=== PATIENT | male | born 1965 | race Caucasian/White ===

== ENCOUNTER 2017-02-18 09:05 | Emergency (ER) | payer MEDICAID ==
[~2017-02-18] VITALS: Ht 180.3 cm; Wt 100.0 kg
[2017-02-18 09:08] VITALS: Ht 180.3 cm; Wt 100.0 kg
[2017-02-18] MEDS ORDERED: METHYLPREDNISOLONE 125 MG INJ IV STA (09:22)
[2017-02-18] MEDS ORDERED: SOD CHLORIDE 0.9% 1,000 ML IV STA (09:22)
[2017-02-18 09:57] LABS: BASOPHIL # 0.1 10^3/ul (0.0-0.1); BASOPHILS % 0.9 % (0.0-2.0); EOSINOPHILS # 0.1 10^3/ul (0.0-0.5); EOSINOPHILS % 1.1 % (0.0-7.0); HEMOGLOBIN 16.5 g/dl (14.0-18.0); LYMPHOCYTES # 1.6 10^3/ul (0.8-2.9); LYMPHOCYTES % 17.8 % (15.0-51.0); MEAN CORPUSCULAR HGB CONC 35.9 g/dl (32.0-37.0); MEAN PLATELET VOLUME 11.6 fl (7.4-10.4); MONOCYTES % 11.8 % (0.0-11.0); NEUTROPHILS % 67.8 % (39.0-77.0); PLATELET COUNT 111 10^3/UL (140-415); POSITIVE DIFF @See below; RED CELL DISTRIBUTION WIDTH 12.6 % (11.5-14.5); WHITE BLOOD COUNT 8.8 10^3/ul (4.8-10.8)
--- NOTE | 2017-02-18 10:01 | RADRPT ---
PROCEDURE: XR Chest. CLINICAL INDICATION: Shortness of breath TECHNIQUE: A single AP view of the chest was obtained. COMPARISON: None. FINDINGS: No focal airspace opacification, pleural effusion or pneumothorax is seen. The cardiomediastinal si lhouette is within normal limits for size. The osseous structures are unremarkable. IMPRESSION: No radiographic evidence of acute cardiopulmonary disease. RPTAT: HH .Diana De La O MD, MD Date Time Electronically viewed and signed by .Diana De La O MD, MD on 02/18/2017 10:00 .G/
[2017-02-18 10:13] LABS: ANION GAP 21 (8-16); BLOOD UREA NITROGEN 5 mg/dl (7-20); CARBON DIOXIDE 23 mmol/L (21-31); CHLORIDE 96 mmol/L (97-110); CREATININE 0.85 mg/dl (0.61-1.24); GLUCOSE 130 mg/dl (70-220); POTASSIUM 3.7 mmol/L (3.5-5.1); SODIUM 136 mmol/L (135-144)
[2017-02-18 10:19] LABS: INR 1.16; PROTIME 14.8 Sec (12.2-14.2); PT RATIO 1.2
[2017-02-18 10:20] LABS: PARTIAL THROMBOPLASTIN TIME 28.9 Sec (25.0-35.0)
[2017-02-18 10:30] LABS: TROPONIN-I < 0.012 ng/ml (0.00-0.12)
--- NOTE | 2017-02-18 11:05 | ERD ---
ER Documentation Chief Complaint Date/Time DATE: 02/18/17 TIME: 11:02 Chief Complaint pt bib self with c/o "heart is pounding" with cough HPI This a 51-year-old male who states he has had a cough for 3-4 days with palpitations off and on. Does not have any substernal chest pain whatsoever. He says he thinks he has had a fever at night but has not documented his temperature. He is having cold chills. His cough is dry but does have some occasional productive yellow sputum. No abdominal pain nausea vomiting diarrhea. No shortness of breath ROS All systems reviewed and are negative except as per history of present illness. Medications Home Meds Active Scripts Azithromycin* (Zithromax*) 250 Mg Tablet, 250 MG PO .ZPACK DIRECTED, #6 TAB TAKE 500 MG (2 TABS) THE FIRST DAY THEN 250 MG (1 TAB) DAYS 2-5 Prov:ROSIE POWELL DO 02/18/17 Albuterol Sulfate* (Proair HFA*) 8.5 Gm Hfa.aer.ad, 2 PUFF INH Q4, #1 INHALER Prov:ROSIE POWELL DO 02/18/17 Prednisone* (Prednisone*) 20 Mg Tab, 60 MG PO DAILY for 5 Days, TAB Prov:ROSIE POWELL DO 02/18/17 Reported Medications Levothyroxine Sodium* (Levothyroxine Sodium*) 88 Mcg Tablet, 88 MCG PO BEFORE BREAKFAST, #30 TAB 02/18/17 Lisinopril* (Lisinopril*) 40 Mg Tablet, 40 MG PO DAILY, #30 TAB 02/18/17 Allergies Allergies: Coded Allergies: No Known Allergy (Unverified , 02/18/17) PMhx/Soc Medical and Surgical Hx: pt denies Surgical Hx History of Surgery: No Anesthesia Reaction: No Hx Neurological Disorder: No Hx Respiratory Disorders: No Hx Cardiac Disorders: Yes (HYPERTENSION) Hx Psychiatric Problems: No Hx Miscellaneous Medical Probl: Yes (THYROID PROBLEMS) Hx Alcohol Use: Yes (DRINK ALCOHOL EVERYDAY BUT QUITTED LAST JULY 2016) Hx Substance Use: No Hx Tobacco Use: No Smoking Status: Never smoker FmHx Family History: No coronary disease Physical Exam Vitals Vital Signs Date Time Temp Pulse Resp B/P Pulse Ox O2 Delivery O2 Flow Rate FiO2 02/18/17 09:25 Nasal Cannula 3 02/18/17 09:08 98.3 122 20 143/92 98 Physical Exam Const: Well-developed, well-nourished Head: Atraumatic, normocephalic Eyes: Normal Conjunctiva, PERRLA, EOMI, normal sclera, no nystagmus ENT: Normal External Ears, Nose and Mouth, moist mucus membranes. Neck: Full range of motion. No meningismus, no lymphadenopathy. Resp: Diffuse bilateral rhonchi and wheezing scattered throughout both lung hill Cardio: Regular rate and rhythm, no murmurs, S1 S2 present Abd: Soft, non tender x 4, non distended. Normal bowel sounds, no guarding or rebound, no pulsitile abdominal masses or bruits Skin: No petechiae or rashes, no ecchymosis , no maculopapular rash Back: No midline or flank tenderness Ext: No cyanosis, or edema, FROM x 4, normal inspection, neurovascularly intact x 4 Neur: Awake and alert, STR 5/5 x 4, sensation intact x 4, no focal findings, cerebellum intact Psych: Normal Mood and Affect Result Diagram: 02/18/17 0940 02/18/17 0940 Results 24 hrs Laboratory Tests Test 02/18/17 09:40 White Blood Count 8.810^3/ul Red Blood Count 5.0010^6/ul Hemoglobin 16.5g/dl Hematocrit 46.0% Mean Corpuscular Volume 92.0fl Mean Corpuscular Hemoglobin 33.0pg Mean Corpuscular Hemoglobin Concent 35.9g/dl Red Cell Distribution Width 12.6% Platelet Count 88452^3/UL Mean Platelet Volume 11.6fl Neutrophils % 67.8% Lymphocytes % 17.8% Monocytes % 11.8% Eosinophils % 1.1% Basophils % 0.9% Nucleated Red Blood Cells % 0.0/100WBC Neutrophils # (Manual) 6.010^3/ul Lymphocytes # 1.610^3/ul Monocytes # 1.010^3/ul Eosinophils # 0.110^3/ul Basophils # 0.110^3/ul Nucleated Red Blood Cells # 0.010^3/ul Prothrombin Time 14.8Sec Prothrombin Time Ratio 1.2 INR International Normalized Ratio 1.16 Activated Partial Thromboplast Time 28.9Sec Sodium Level 136mmol/L Potassium Level 3.7mmol/L Chloride Level 96mmol/L Carbon Dioxide Level 23mmol/L Anion Gap 21 Blood Urea Nitrogen 5mg/dl Creatinine 0.85mg/dl Glucose Level 130mg/dl Calcium Level 9.0mg/dl Troponin I < 0.012ng/ml Current Medications Medications (Trade) Dose Ordered Sig/Blanca Route PRN Reason Start Time Stop Time Status Last Admin Dose Admin Methylprednisolone Sodium Succinate 125 mg 125 mg ONCE STAT IV 02/18/17 09:22 02/18/17 09:28 DC 02/18/17 09:53 Sodium Chloride (NS) 1,000 ml @ 1,000 mls/hr Q1H STAT IV 02/18/17 09:22 02/18/17 10:21 DC 02/18/17 09:53 IV Flush 10 ml 10 ml STK-MED ONCE .ROUTE 02/18/17 11:11 02/18/17 11:12 DC Sodium Chloride 100 ml @ ud STK-MED ONCE .ROUTE 02/18/17 11:11 02/18/17 11:12 DC Iohexol (Omnipaque) 100 ml @ ud STK-MED ONCE .ROUTE 02/18/17 11:11 02/18/17 11:12 DC Iohexol (Omnipaque 350mg/ ml) 50 ml STK-MED ONCE .ROUTE 02/18/17 11:12 02/18/17 11:13 DC Procedures/MDM EKG: Rate/Rhythm: Sinus tachycardia heart rate 111 QRS, ST, QT: NORMAL [place], QRS, QT] Impression: Sinus tachycardia PROCEDURE: XR Chest. CLINICAL INDICATION: Shortness of breath TECHNIQUE: A single AP view of the chest was obtained. COMPARISON: None. FINDINGS: No focal airspace opacification, pleural effusion or pneumothorax is seen. The cardiomediastinal silhouette is within normal limits for size. The osseous structures are unremarkable. IMPRESSION: No radiographic evidence of acute cardiopulmonary disease. RPTAT: HH .Diana De La O MD, MD Date Time Electronically viewed and signed by .Diana De La O MD, MD on 02/18/2017 10 :00 .G/ CC: ROSIE POWELL DO Patient received breathing treatments and Solu-Medrol PROCEDURE: XR Chest. CLINICAL INDICATION: Shortness of breath TECHNIQUE: A single AP view of the chest was obtained. COMPARISON: None. FINDINGS: No focal airspace opacification, pleural effusion or pneumothorax is seen. The cardiomediastinal silhouette is within normal limits for size. The osseous structures are unremarkable. IMPRESSION: No radiographic evidence of acute cardiopulmonary disease. RPTAT: HH .Diana De La O MD, Date Time Electronically viewed and signed by .Diana De La O MD, MD on 02/18/2017 10 :00 .G/ CC: ROSIE POWELL DO PROCEDURE: CTA Chest. CLINICAL INDICATION: Chest pain TECHNIQUE: The study was performed utilizing a multidetector CT scanner. Direct spiral 1 mm axial sections were obtained from the thoracic inlet to the upper abdomen with the use of 115 cc of Omnipaque 350 nonionic intravenous contrast material and reformatted at 3 mm. Coronal and sagittal reformations were obtained. 3-D reconstructions were also obtained. The images were reviewed on a PACS workstation. One or more of the following dose reduction techniques were used: - Automated exposure control. - Adjustment of the mA and/or kV according to patient size. Use of iterative reconstruction technique. DLP 599.6 mGycm CTDIvol 35.2 and 14.9 mGy COMPARISON: No prior studies are available for comparison. FINDINGS: The pulmonary arteries are within normal limits with no filling defects present to suggest pulmonary embolus. Trace visible aortic and coronary artery atherosclerotic plaque and calcification are present with no evidence of dissection. There is no cardiomegaly. There is no lung consolidation, pleural effusion, or pneumothorax. There is no suspicious nodule or mass. The airways are patent. There are no enlarged mediastinal or axillary lymph nodes. There is a diffusely heterogeneous appearance of the liver which has a nodular contour with innumerable hypodensities in this is seen in the setting of fatty infiltration of the liver as well. The spleen is at the upper limits of normal in size. Degenerative changes are seen in the lumbar spine with no evidence of acute osseous abnormality. IMPRESSION: No CT evidence for pulmonary embolus. There is no aortic dissection. Atherosclerotic disease. No acute pulmonary process. Innumerable hypodensities are seen within the liver which has fatty density and nodular contour and this is concerning for chronic liver disease and cirrhosis. Numerous hypodense nodules could represent degenerative changes however masses are not excluded. An MRI of the liver is recommended to further evaluate. .Clarisse Garcia MD, MD Date Time Electronically viewed and signed by .Clarisse Garcia MD, MD on 02/18/2017 11:40 .J/ CC: ROSIE POWELL DO Patient says he knows he has elevated liver function test told him to follow-up with his doctor. Patient on repeat exam at 1300 has clear breath sounds with good air movement adequate oxygenation. Gave him a copy of his CAT scan report Departure Diagnosis: Primary Impression: Bronchitis Additional Impression: Palpitations Condition: Stable ROSIE POWELL DO Feb 18, 2017 11:05
[2017-02-18] MEDS ORDERED: SOD CHLORIDE 0.9% 100 ML ONE (11:11)
[2017-02-18] MEDS ORDERED: IOHEXOL 100 ML ONE (11:11)
[2017-02-18] MEDS ORDERED: IOHEXOL 350MG/ML 50 ML BTL ONE (11:12)
--- NOTE | 2017-02-18 11:40 | RADRPT ---
PROCEDURE: CTA Chest. CLINICAL INDICATION: Chest pain TECHNIQUE: The study was performed utilizing a multidetector CT scanner. Direct spiral 1 mm axial sections were obtained from the thoracic inlet to the upper abdomen with the use of 115 cc of Omnipa que 350 nonionic intravenous contrast material and reformatted at 3 mm. Coronal and sagittal reforma tions were obtained. 3-D reconstructions were also obtained. The images were reviewed on a PACS wor kstation. One or more of the following dose reduction techniques were used: - Automated exposure control. - Adjustment of the mA and/or kV according to patient size. Use of iterative reconstruction technique. DLP 599.6 mGycm CTDIvol 35.2 and 14.9 mGy COMPARISON: No prior studies are available for comparison. FINDINGS: The pulmonary arteries are within normal limits with no filling defects present to suggest pulmonary embolus. Trace visible aortic and coronary artery atherosclerotic plaque and calcification are pre sent with no evidence of dissection. There is no cardiomegaly. There is no lung consolidation, pleural effusion, or pneumothorax. There is no suspicious nodule or mass. The airways are patent. There are no enlarged mediastinal or axillary lymph nodes. There is a diffusely heterogeneous appearance of the liver which has a nodular contour with innumera ble hypodensities in this is seen in the setting of fatty infiltration of the liver as well. The sp jorge alberto is at the upper limits of normal in size. Degenerative changes are seen in the lumbar spine with no evidence of acute osseous abnormality. IMPRESSION: No CT evidence for pulmonary embolus. There is no aortic dissection. Atherosclerotic disease. No acute pulmonary process. Innumerable hypodensities are seen within the liver which has fatty density and nodular contour and this is concerning for chronic liver disease and cirrhosis. Numerous hypodense nodules could repres ent degenerative changes however masses are not excluded. An MRI of the liver is recommended to fur ther evaluate. .Clarisse Garcia MD, MD Date Time Electronically viewed and signed by .Clarisse Garcia MD, MD on 02/18/2017 11:40 .Vito/
[2017-02-18] MEDS ORDERED: LEVO88TA3 PO (11:44)
[2017-02-18] MEDS ORDERED: LISI40TA9 PO (11:44)
[2017-02-18] MEDS ORDERED: AZIT250T94 PO (13:02)
[2017-02-18] MEDS ORDERED: ALBU8.5H3 INH (13:02)
[2017-02-18] MEDS ORDERED: PRED20TA PO (13:02)
[2017-02-18 13:13] VITALS: BP 147/86; PULSE 85; RESP 20; TEMP 98.4
== END 2017-02-18 13:14 | disposition home or self-care (01) ==
LOC: E/R 09:05
DX: J20.9 Acute bronchitis, unspecified (principal); R40.2252 Coma scale, best verbal response, oriented, at arrival to emergency department; R00.2 Palpitations; I10 Essential (primary) hypertension; R40.2142 Coma scale, eyes open, spontaneous, at arrival to emergency department; R40.2362 Coma scale, best motor response, obeys commands, at arrival to emergency department; R06.02 Shortness of breath
CPT/HCPCS: 36415; 71010; 71275; 80048; 84484; 85025; 85610; 85730; 93005; 96374; J2930; J7030; Q9967; Z7502; Z7610

== ENCOUNTER 2017-12-14 15:38 | Emergency (ER) | END 2017-12-14 20:17 | disposition home or self-care (01) ==

== ENCOUNTER 2018-03-25 16:59 | Emergency (ER) | END 2018-03-25 21:03 | disposition home or self-care (01) ==

== ENCOUNTER 2018-06-08 20:22 | Emergency (ER) | END 2018-06-09 01:25 | disposition home or self-care (01) ==